=== PATIENT | male | born 1960 | race African-American/Black ===

== ENCOUNTER 2023-03-05 10:57 | Emergency (ER) | payer MEDICAID, OTHER ==
[~2023-03-05] VITALS: Ht 175.3 cm; Wt 91.0 kg
[~2023-03-05 10:57] MED LIST: LISI10TA PO
[2023-03-05 10:59] VITALS: TEMP 98
[2023-03-05] MEDS ORDERED: ATOR40TA71 PO (11:02)
[2023-03-05] MEDS ORDERED: CHLO25TA3 PO (11:02)
[2023-03-05] MEDS ORDERED: AMLO10TA55 PO (11:02)
[2023-03-05] MEDS ORDERED: LISI10TA24 PO (11:02)
[2023-03-05] MEDS ORDERED: DiphenhydrAMINE HCL 50 MG/ML VIAL IM ONE (12:30)
[2023-03-05] MEDS ORDERED: FAMOTIDINE 20 MG TABLET PO ONE (12:30)
[2023-03-05] MEDS ORDERED: MethylPREDNISolone SOD SUCC 125 MG/2 ML VIAL IM ONE (12:30)
[2023-03-05 14:02] VITALS: BP 135/87; PULSE 65; RESP 16
[2023-03-05] MEDS ORDERED: DIPH50CA37 PO (14:43)
[2023-03-05] MEDS ORDERED: PRED-554 PO (14:43)
== END 2023-03-05 15:07 | disposition home or self-care (01) ==
LOC: EMS 11:02
DX: T78.3XXA Angioneurotic edema, initial encounter (principal); E78.00 Pure hypercholesterolemia, unspecified; I10 Essential (primary) hypertension
CPT/HCPCS: 99284; 96372; J1200; J2930